=== PATIENT | female | born 1985 | race Caucasian/White ===

== ENCOUNTER 2025-09-08 18:59 | Emergency (ER) | payer OTHER ==
[~2025-09-08] VITALS: Ht 170.2 cm; Wt 70.0 kg
[2025-09-08 19:04] VITALS: BP 132/68; PULSE 81; RESP 18; TEMP 37; O2SAT 100
[2025-09-08] MEDS ORDERED: ACETAMINOPHEN 325MG TABLET PO ONE (19:45)
== END 2025-09-08 21:06 | disposition left against medical advice (07) ==
LOC: ER 18:59
DX: M25.579 Pain in unspecified ankle and joints of unspecified foot (principal); Z53.21 Procedure and treatment not carried out due to patient leaving prior to being seen by health care provider
CPT/HCPCS: 99281